=== PATIENT | female | born 1970 | race African-American/Black ===

== ENCOUNTER 2018-03-20 08:03 | Day surgery (SDC) | payer OTHER ==
[~2018-03-20] VITALS: Ht 170.2 cm; Wt 95.5 kg
[~2018-03-20 08:03] MED LIST: HCTZ 25MG25 MG PO; KLONOPIN0.5 MG PO; NEXIUM 40MG40 MG PO; TOPROL XL25 MG PO
[2018-03-20 08:22] VITALS: BP 143/94; PULSE 73; TEMP 98.3
[2018-03-20] MEDS ORDERED: HCTZ 25MG TAB25 MG PO (08:48)
[2018-03-20] MEDS ORDERED: TOPROL XL 50MG50 MG PO (08:48)
[2018-03-20] MEDS ORDERED: MASON NATURAL2000 IU PO (08:49)
[2018-03-20] MEDS ORDERED: NEURONTIN300 MG/CAP PO (08:49)
[2018-03-20] MEDS ORDERED: WELLBUTRIN XL300 M1 PO (08:49)
[2018-03-20] MEDS ORDERED: DHEA25 M3 PO (08:50)
[2018-03-20] MEDS ORDERED: FISH OIL 1000MG1 CAP PO (08:51)
[2018-03-20] MEDS ORDERED: PROMETRIUM200 M1 PO (08:51)
[2018-03-20] MEDS ORDERED: NATURAL MAGNES200 MG PO (08:51)
[2018-03-20 09:55] VITALS: BP 126/89; PULSE 62; TEMP 97.8
[2018-03-20 10:00] VITALS: BP 128/83; PULSE 59
[2018-03-20 10:15] VITALS: BP 132/81; PULSE 59
[2018-03-20 10:30] VITALS: BP 139/89; PULSE 56
[2018-03-20 10:45] VITALS: BP 123/88; PULSE 59
== END 2018-03-20 10:55 | disposition home or self-care (01) ==
LOC: SDCO 08:03
DX: D12.2 Benign neoplasm of ascending colon (principal); K57.30 Diverticulosis of large intestine without perforation or abscess without bleeding; Z80.0 Family history of malignant neoplasm of digestive organs; K59.00 Constipation, unspecified; K58.9 Irritable bowel syndrome, unspecified; I10 Essential (primary) hypertension; I34.1 Nonrheumatic mitral (valve) prolapse; R01.1 Cardiac murmur, unspecified; K21.9 Gastro-esophageal reflux disease without esophagitis
CPT/HCPCS: J2250; J3010; J7030

== ENCOUNTER 2021-07-20 07:17 | Day surgery (SDC) | payer OTHER ==
[~2021-07-20] VITALS: Ht 170.2 cm; Wt 101.3 kg
[~2021-07-20 07:17] MED LIST changes: +DHEA25 M3 PO; +FISH OIL 1000MG1 CAP PO; +HCTZ 25MG TAB25 MG PO; +MASON NATURAL2000 IU PO; +NATURAL MAGNES200 MG PO; +NEURONTIN300 MG/CAP PO; +PROMETRIUM200 M1 PO; +TOPROL XL 50MG50 MG PO; +WELLBUTRIN XL300 M1 PO
[2021-07-20 08:14] VITALS: BP 138/88; PULSE 64; TEMP 97.7
[2021-07-20] MEDS ORDERED: PREMARIN 0.60.625 M1 PO (08:14)
--- NOTE | 2021-07-20 09:20 | NUR ---
PATIENT TRANSPORTED PER CART FROM GI SUITE TO BAY 6 ACCOMPANIED BY ENDO RN. PATIENT AMBULATED FROM CART TO CHAIR WITH 1 ASSIST. MONITORS APPLIED. VSS ON ROOM AIR. UMESH TALKS WITH STAFF. PATIENT GIVEN MUFFIN AND JUICE. 0930 IN AND SPEAKS WITH PATIENT.
[2021-07-20 09:30] VITALS: BP 132/81; PULSE 51
[2021-07-20 09:50] VITALS: BP 131/84; PULSE 55
--- NOTE | 2021-07-20 09:50 | NUR ---
VSS ON ROOM AIR. PATIENT TOLERATES FOOD AND DRINK WITHOUT PROBLEMS. SPEAKS WITH PATIENT. 0952 DISCHARGE INSTRUCTIONS GIVEN VERBAL AND DISCHARGE PACKET GIVEN TO PATIENT. QUESTIONS ANSWERED AND PATIENT VOICED UNDERSTANDING. PATIENT CHANGES INTO STREET CLOTHES. 1000 PATIENT DISMISSSED PER WHEEL CHAIR ACCOMPANIED BY AMB RN TO PRIVATE VECHILE DRIVEN BY .
[2021-07-20 09:55] VITALS: BP 110/82; PULSE 57
== END 2021-07-20 10:00 | disposition home or self-care (01) ==
LOC: SDCO 07:17
DX: Z12.11 Encounter for screening for malignant neoplasm of colon (principal); K57.30 Diverticulosis of large intestine without perforation or abscess without bleeding; K21.9 Gastro-esophageal reflux disease without esophagitis; K58.9 Irritable bowel syndrome, unspecified; I10 Essential (primary) hypertension; I35.2 Nonrheumatic aortic (valve) stenosis with insufficiency; E66.9 Obesity, unspecified; Z87.891 Personal history of nicotine dependence; Z15.09 Genetic susceptibility to other malignant neoplasm; Z80.0 Family history of malignant neoplasm of digestive organs
CPT/HCPCS: J2704; J7120